=== PATIENT | male | born 1985 | race Caucasian/White ===

== ENCOUNTER 2021-09-27 09:30 | Outpatient (CLI) | payer BC, SELFPAY ==
[2021-09-27 11:13] LABS: Cholesterol* 217 mg/dL (90-199); Glucose* 106 mg/dL (60-115)
[2021-09-27 11:14] LABS: HDL Cholesterol* 42 mg/dL (>=40); LDL Cholesterol Calculated 153 mg/dL (<100); Triglycerides* 111 mg/dL (40-149)
== END 2021-09-27 09:31 | disposition home or self-care (01) ==
LOC: NFLDREF 09:32
PROVIDERS: PCP Family Medicine; Visit Provider Family Medicine
DX: Z00.00 Encounter for general adult medical examination without abnormal findings (principal); E78.5 Hyperlipidemia, unspecified; Z87.898 Personal history of other specified conditions; R55 Syncope and collapse; Z13.1 Encounter for screening for diabetes mellitus
CPT/HCPCS: 80061; 82947